=== PATIENT | male | born 1970 | race African-American/Black ===

== ENCOUNTER 2016-10-06 12:25 | Emergency (ER) | payer SELFPAY ==
[~2016-10-06] VITALS: Ht 195.6 cm; Wt 102.1 kg
--- NOTE | 2016-10-06 12:35 | PHYS DOC ---
Adult General Chief Complaint Chief Complaint: SYNCOPE HPI HPI Patient is a 46 year old male who presents with a syncopal episode prior to arrival. Patient states he was walking from the bathroom back to the bed and passed out. called EMS. Patient states he did hit his head however is on no blood thinners. Patient states that for the past 3-4 days he's had low-grade temps and has not felt well. Patient does describe some abdominal pain as generalized with associated constipation. Patient denies any chest pain or shortness of breath. Patient denies any nausea or vomiting. Patient denies any dysuria. Patient denies any other injuries related to the traumatic fall. Pertinent exam findings: Abdomen Right lower quadrant tenderness palpation without rebound tenderness ED course: Patient seen and evaluated upon arrival CBC, CMP, lipase, UA, CT of head without contrast, CT abdomen and pelvis with contrast ordered 1243: EKG shows normal sinus rhythm rate of 80 9 STEMI 1510: Discussed results of the patient and explained to him that he has a right lower lobe pneumonia and gave him a gram of Rocephin in the emergency room and discharge him home with Zithromax Pertinent findings: CT the head without contrast no acute cranial process CT of abdomen and pelvis no intra-abdominal process however right lower lobe pneumonia MDM: After reviewing the chart, CC/HPI/PMH, physical exam, [lab results], [ radiological results], I do not believe the patient has intracranial process warranting further workup and/or admission at this time. I do not believe the patient is septic and needs be admitted for his pneumonia. I believe the patient is stable to be discharged and can take oral antibiotics to treat his pneumonia as an outpatient. On reexamination the patient is asymptomatic and comfortable going home. Additional verbal discharge instructions were provided to the patient and that if symptoms get worse or any new symptoms arise that are worrisome to the patient he is to return to the emergency room immediately Review of Systems Review of Systems GEN: Denies fevers, chills, sweats HEENT: Denies blurred vision, sore throat CV: Denies chest pain RESP: Denies shortness of air, cough GI: Denies n/v/d, positive for abdominal pain NEURO: Denies confusion, dizziness MSK: Denies weakness, joint pain/swelling Current Medications Current Medications Current Medications Medications (Trade) Dose Ordered Sig/Sonny Start Time Stop Time Status Last Admin Dose Admin Ceftriaxone Sodium 50 ml @ 100 mls/hr 1X ONCE 10/06/16 15:30 10/06/16 15:59 Info (Do NOT chart on this entry -- for MONITORING) 1 each PRN DAILY PRN 10/06/16 13:45 10/08/16 13:44 Iohexol (Omnipaque 300 Mg/ml) 75 ml 1X ONCE 10/06/16 13:45 10/06/16 13:46 DC 10/06/16 13:49 75 ML Sodium Chloride 1,000 ml @ 1,000 mls/hr 1X ONCE 10/06/16 12:45 10/06/16 13:44 DC 10/06/16 12:59 1,000 MLS/HR Allergies Allergies Allergies Coded Allergies Type Severity Reaction Last Updated Verified No Known Drug Allergies 10/06/16 No Physical Exam Physical Exam GEN.: No apparent distress. Alert and oriented. HEENT: Head is normocephalic, atraumatic NECK: Supple. LUNGS: CTAB. HEART: RRR, S1, S2 present. Peripheral pulses intact ABDOMEN: Soft, positive tender to palpation right lower quadrant with no rebound tenderness. Positive bowel sounds. EXTREMITIES: Without any cyanosis. NEUROLOGIC: Normal speech, normal tone PSYCHIATRIC: Normal affect, normal mood. SKIN: No ulcerations Current Patient Data Vital Signs Vital Signs Date Time Temp Pulse Resp B/P (MAP) Pulse Ox O2 Delivery O2 Flow Rate FiO2 10/06/16 12:30 100.2 89 20 125/77 (93) 99 Room Air 100.2 Lab Values Laboratory Tests Test 10/06/16 12:55 10/06/16 13:10 White Blood Count 10.9 x10^3/uL (4.0-11.0) Red Blood Count 4.46 x10^6/uL (4.30-5.70) Hemoglobin 13.5 g/dL (13.0-17.5) Hematocrit 39.8 % (39.0-53.0) Mean Corpuscular Volume 89 fL (79-100) Mean Corpuscular Hemoglobin 30 pg (25-35) Mean Corpuscular Hemoglobin Concent 34 g/dL (31-37) Red Cell Distribution Width 14.4 % (11.5-14.5) Platelet Count 240 x10^3/uL (140-400) Neutrophils (%) (Auto) 81 % (31-73) H Lymphocytes (%) (Auto) 9 % (24-48) L Monocytes (%) (Auto) 10 % (0-9) H Eosinophils (%) (Auto) 0 % (0-3) Basophils (%) (Auto) 0 % (0-3) Neutrophils # (Auto) 8.9 x10^3uL (1.8-7.7) H Lymphocytes # (Auto) 0.9 x10^3/uL (1.0-4.8) L Monocytes # (Auto) 1.1 x10^3/uL (0.0-1.1) Eosinophils # (Auto) 0.0 x10^3/uL (0.0-0.7) Basophils # (Auto) 0.0 x10^3/uL (0.0-0.2) Sodium Level 136 mmol/L (136-145) Potassium Level 3.7 mmol/L (3.5-5.1) Chloride Level 98 mmol/L (98-107) Carbon Dioxide Level 29 mmol/L (21-32) Anion Gap 9 (6-14) Blood Urea Nitrogen 12 mg/dL (8-26) Creatinine 1.2 mg/dL (0.7-1.3) Estimated GFR (Cockcroft-Gault) 79.6 BUN/Creatinine Ratio 10 (6-20) Glucose Level 125 mg/dL (70-99) H Calcium Level 9.2 mg/dL (8.5-10.1) Total Bilirubin 0.5 mg/dL (0.2-1.0) Aspartate Amino Transferase (AST) 14 U/L (15-37) L Alanine Aminotransferase (ALT) 20 U/L (16-63) Alkaline Phosphatase 87 U/L (46-116) Total Protein 7.9 g/dL (6.4-8.2) Albumin 3.6 g/dL (3.4-5.0) Albumin/Globulin Ratio 0.8 (1.0-1.7) L Lipase 63 U/L (73-393) L Urine Collection Type Unknown Urine Color Yellow Urine Clarity Clear Urine pH 6.0 Urine Specific [place] 1.010 Urine Protein Negative mg/dL (NEG-TRACE) Urine Glucose (UA) Negative mg/dL (NEG) Urine Ketones (Stick) Trace mg/dL (NEG) Urine Blood Moderate (NEG) Urine Nitrite Negative (NEG) Urine Bilirubin Negative (NEG) Urine Urobilinogen Dipstick 1.0 mg/dL (0.2 mg/dL) Urine Leukocyte Esterase Negative (NEG) Urine RBC 1-2 /HPF (0-2) Urine WBC Occ /HPF (0-4) Urine Squamous Epithelial Cells Occ /LPF Urine Bacteria 0 /HPF (0-FEW) Urine Mucus Mod /LPF Urine Yeast Present /HPF Laboratory Tests 10/06/16 12:55 Laboratory Tests 10/06/16 12:55 EKG EKG Normal sinus rhythm rate of 80 and a STEMI [] Radiology/Procedures Radiology/Procedures CT of the head without contrast and right ear CT abdomen and pelvis IMPRESSION: No acute finding seen in the abdomen or pelvis. Infiltrate in the right lower lobe compatible with pneumonia. Chronic musculoskeletal changes. Mildly enlarged prostate[] Course & Med Decision Making Course & Med Decision Making Pertinent Labs and Imaging studies reviewed. (See chart for details) [] Dragon Disclaimer Dragon Disclaimer This electronic medical record was generated, in whole or in part, using a voice recognition dictation system. Departure Departure Impression: Primary Impression: Right lower lobe pneumonia Additional Impression: Syncope Disposition: HOME, SELF-CARE Condition: IMPROVED Patient Instructions: Pneumonia, Adult Additional Instructions: Please follow up with her PCP in one to 2 days and return if symptoms get worse Scripts Azithromycin (ZITHROMAX) 250 Mg Tablet 1 PKG PO UD, #6 TAB Prov: ANUPAM SANCHEZ DO 10/06/16 Problem Qualifiers Primary Impression: Right lower lobe pneumonia Pneumonia type: due to unspecified organism Qualified Codes: J18.1 - Lobar pneumonia, unspecified organism Additional Impression: Syncope Syncope type: unspecified Qualified Codes: R55 - Syncope and collapse ANUPAM SANCHEZ DO October 06, 2016 12:35
[2016-10-06] MEDS ORDERED: IV NORMAL SALINE 1000ML BAG 1,000 ML IV ONE (12:45)
--- NOTE | 2016-10-06 12:47 | EKG ---
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
[2016-10-06 13:15] LABS: BASO % 0 % (0-3); EOS % 0 % (0-3); HEMATOCRIT 39.8 % (39.0-53.0); HEMOGLOBIN 13.5 g/dL (13.0-17.5); LYMPH # 0.9 x10^3/uL (1.0-4.8); LYMPH % 9 % (24-48); MEAN CORPUSCULAR HEMOGLOBIN 30 pg (25-35); MEAN CORPUSCULAR HGB CONC 34 g/dL (31-37); MEAN CORPUSCULAR VOLUME 89 fL (79-100); MONO % 10 % (0-9); NEUT % 81 % (31-73); PLATELET COUNT 240 x10^3/uL (140-400); RED BLOOD COUNT 4.46 x10^6/uL (4.30-5.70); RED CELL DISTRIBUTION WIDTH 14.4 % (11.5-14.5); WHITE BLOOD COUNT 10.9 x10^3/uL (4.0-11.0)
[2016-10-06 13:21] LABS: BILIRUBIN,URINE NEGATIVE (NEG); GLUCOSE,URINE NEGATIVE (NEG); NITRITE,URINE NEGATIVE (NEG); PROTEIN,URINE NEGATIVE (NEG-TRACE)
[2016-10-06 13:22] LABS: CALCIUM 9.2 mg/dL (8.5-10.1); CREATININE 1.2 mg/dL (0.7-1.3); GFR 79.6; POTASSIUM 3.7 mmol/L (3.5-5.1)
[2016-10-06 13:27] LABS: ALBUMIN 3.6 g/dL (3.4-5.0); ALBUMIN/GLOBULIN RATIO 0.8 (1.0-1.7); TOTAL BILIRUBIN 0.5 mg/dL (0.2-1.0); TOTAL PROTEIN 7.9 g/dL (6.4-8.2)
[2016-10-06 13:36] LABS: BACTERIA,URINE 0 /HPF (0-FEW); SQUAMOUS EPITHELIAL CELL,UR OCC /LPF; WBC,URINE OCC /HPF (0-4); YEAST,URINE PRESENT /HPF
[2016-10-06] MEDS ORDERED: IOHEXOL 300 MG/ML 75 ML VIAL IV ONE (13:45)
[2016-10-06] MEDS ORDERED: CONTRAST GIVEN MC PRN (13:45)
--- NOTE | 2016-10-06 13:48 | RAD ---
CT head without contrast History: Syncope, fall, trauma to head. Comparison: None. Procedure: Axial images are obtained of the head from the skull base through the vertex without IV contrast. One or more of the following individualized dose reduction techniques were utilized for the study: Automated exposure control Adjustment of mA and/or kV according to patient's size Use of iterative reconstruction technique. Findings: The ventricles and sulci are normal for the patient's age. No mass-effect, intracranial mass, midline shift, hemorrhage or obvious acute infarction is identified. Basilar cisterns are patent. Bone windows demonstrate no significant calvarial abnormality. The visualized paranasal sinuses appear clear. Impression: No acute intracranial process.
--- NOTE | 2016-10-06 14:09 | RAD ---
Indication syncopal episode. Flank pain. Axial images through the abdomen and pelvis were obtained. Approximately 75 cc of Omnipaque 300 was administered intravenously. No oral contrast was administered. No prior imaging of the abdomen or pelvis is available. There is a significant area of consolidation, measuring approximately 6.5 cm in greatest dimension, in the right lower lobe compatible with pneumonia. The left lung base is clear. The liver and spleen appear normal and the gallbladder appears grossly normal. No pancreatic abnormality is seen. The adrenal glands and kidneys appear normal. No mass inflammatory process or acute finding in the abdomen is seen. No acute finding is seen in the pelvis. The prostate is mildly enlarged. There are degenerative changes in the lumbar spine. Degenerative changes are predominantly centered at L4-5 where there is disc space narrowing and degenerative endplate change. IMPRESSION: No acute finding seen in the abdomen or pelvis. Infiltrate in the right lower lobe compatible with pneumonia. Chronic musculoskeletal changes. Mildly enlarged prostate
[2016-10-06] MEDS ORDERED: AZIT250T PO (15:23)
[2016-10-06 16:00] VITALS: BP 133/83
== END 2016-10-06 16:02 | disposition home or self-care (01) ==
LOC: ER 12:25
DX: R55 Syncope and collapse (principal); J18.1 Lobar pneumonia, unspecified organism
CPT/HCPCS: 36415; 70450; 74177; 80053; 81001; 83690; 85027; 93005; 96361; 96365; 99285; J0690; J7030; Q9967

== ENCOUNTER 2017-08-18 17:25 | Emergency (ER) | payer OTHER ==
[2017-08-18 19:15] LABS: BILIRUBIN,URINE NEGATIVE (NEG); CLARITY,URINE CLEAR; COLOR,URINE YELLOW; GLUCOSE,URINE NEGATIVE (NEG); NITRITE,URINE NEGATIVE (NEG); PROTEIN,URINE NEGATIVE (NEG-TRACE)
[2017-08-18 19:20] LABS: BACTERIA,URINE 0 /HPF (0-FEW); RBC,URINE 0 /HPF (0-2); SQUAMOUS EPITHELIAL CELL,UR OCC /LPF; WBC,URINE 0 /HPF (0-4)
[2017-08-18] MEDS: IV NORMAL SALINE 1000ML BAG 1,000 ML IV (19:35)
[2017-08-18] MEDS: KETOROLAC 30 MG/ML INJ. IV (19:36)
[2017-08-18 19:46] LABS: ADD MAN DIFF? NO
[2017-08-18 19:50] LABS: BASO % 1 % (0-3); EOS # 0.2 x10^3/uL (0.0-0.7); EOS % 3 % (0-3); HEMATOCRIT 41.5 % (39.0-53.0); HEMOGLOBIN 13.9 g/dL (13.0-17.5); LYMPH # 2.3 x10^3/uL (1.0-4.8); LYMPH % 41 % (24-48); MEAN CORPUSCULAR HEMOGLOBIN 30 pg (25-35); MEAN CORPUSCULAR HGB CONC 34 g/dL (31-37); MEAN CORPUSCULAR VOLUME 90 fL (79-100); MONO # 0.5 x10^3/uL (0.0-1.1); MONO % 9 % (0-9); NEUT # 2.6 x10^3uL (1.8-7.7); NEUT % 46 % (31-73); PLATELET COUNT 301 x10^3/uL (140-400); RED BLOOD COUNT 4.61 x10^6/uL (4.30-5.70); RED CELL DISTRIBUTION WIDTH 15.3 % (11.5-14.5); WHITE BLOOD COUNT 5.7 x10^3/uL (4.0-11.0)
[2017-08-18 20:02] LABS: ANION GAP 8 (6-14); BLOOD UREA NITROGEN 23 mg/dL (8-26); BUN/CREATININE RATIO 19 (6-20); CALCIUM 8.9 mg/dL (8.5-10.1); CARBON DIOXIDE 30 mmol/L (21-32); CHLORIDE 102 mmol/L (98-107); CREATININE 1.2 mg/dL (0.7-1.3); GFR 79.2; GLUCOSE 91 mg/dL (70-99); POTASSIUM 4.1 mmol/L (3.5-5.1); SODIUM 140 mmol/L (136-145)
[2017-08-18 20:05] LABS: ALBUMIN 3.8 g/dL (3.4-5.0); ALBUMIN/GLOBULIN RATIO 0.9 (1.0-1.7); ALK PHOS 96 U/L (46-116); ALT (SGPT) 113 U/L (16-63); AST (SGOT) 61 U/L (15-37); CREATINE KINASE 859 U/L (39-308); TOTAL BILIRUBIN 0.3 mg/dL (0.2-1.0); TOTAL PROTEIN 7.9 g/dL (6.4-8.2)
== END 2017-08-18 20:43 | disposition home or self-care (01) ==
LOC: ER 17:25
DX: E86.0 Dehydration (principal); M25.512 Pain in left shoulder; T67.5XXA Heat exhaustion, unspecified, initial encounter; E78.00 Pure hypercholesterolemia, unspecified; I10 Essential (primary) hypertension; X58.XXXA Exposure to other specified factors, initial encounter; Y93.89 Activity, other specified; Y99.8 Other external cause status; Y92.89 Other specified places as the place of occurrence of the external cause
CPT/HCPCS: 36415; 73030; 80053; 81001; 82550; 85025; 93005; 96361; 96374; 99285-25; J1885; J7030

== ENCOUNTER 2017-11-30 00:01 | Emergency (ER) | payer OTHER ==
[2017-11-30 02:24] LABS: ADD MAN DIFF? NO
[2017-11-30 02:26] LABS: BASO % 1 % (0-3); EOS # 0.1 x10^3/uL (0.0-0.7); EOS % 2 % (0-3); HEMATOCRIT 40.7 % (39.0-53.0); LYMPH # 2.3 x10^3/uL (1.0-4.8); LYMPH % 40 % (24-48); MEAN CORPUSCULAR HEMOGLOBIN 32 pg (25-35); MEAN CORPUSCULAR HGB CONC 35 g/dL (31-37); MEAN CORPUSCULAR VOLUME 92 fL (79-100); MONO # 0.6 x10^3/uL (0.0-1.1); MONO % 11 % (0-9); NEUT # 2.7 x10^3uL (1.8-7.7); NEUT % 47 % (31-73); PLATELET COUNT 264 x10^3/uL (140-400); RED BLOOD COUNT 4.42 x10^6/uL (4.30-5.70); RED CELL DISTRIBUTION WIDTH 15.4 % (11.5-14.5); WHITE BLOOD COUNT 5.8 x10^3/uL (4.0-11.0)
[2017-11-30] MEDS: IV NORMAL SALINE 1000ML BAG 1,000 ML IV (02:26)
[2017-11-30] MEDS: MORPHINE SULFATE 4 MG/ML DISP.SYRIN. IV (02:26)
[2017-11-30 02:38] LABS: ANION GAP 9 (6-14); BLOOD UREA NITROGEN 25 mg/dL (8-26); CARBON DIOXIDE 27 mmol/L (21-32); CHLORIDE 105 mmol/L (98-107); CREATININE 1.3 mg/dL (0.7-1.3); GFR 72.2; GLUCOSE 90 mg/dL (70-99); SODIUM 141 mmol/L (136-145)
[2017-11-30 02:43] LABS: ALBUMIN 3.9 g/dL (3.4-5.0); ALK PHOS 84 U/L (46-116); ALT (SGPT) 28 U/L (16-63); AST (SGOT) 15 U/L (15-37); DIRECT BILIRUBIN 0.1 mg/dL (0.0-0.2); LIPASE 125 U/L (73-393); TOTAL BILIRUBIN 0.5 mg/dL (0.2-1.0); TOTAL PROTEIN 7.6 g/dL (6.4-8.2)
[2017-11-30] MEDS ORDERED: CONTRAST GIVEN. MC (03:00)
[2017-11-30] MEDS: IOHEXOL 300 MG/ML 100ML VIAL. IV (03:15)
== END 2017-11-30 05:00 | disposition home or self-care (01) ==
LOC: ER 00:01
DX: G89.29 Other chronic pain (principal); R10.13 Epigastric pain; M54.9 Dorsalgia, unspecified; R21 Rash and other nonspecific skin eruption; E78.00 Pure hypercholesterolemia, unspecified; I10 Essential (primary) hypertension
CPT/HCPCS: 36415; 74177; 80048; 80076; 83690; 85025; 96374; 99285-25; J2270; J7030; Q9967

== ENCOUNTER 2017-12-25 13:18 | Emergency (ER) | payer OTHER ==
[~2017-12-25] VITALS: Ht 195.6 cm; Wt 102.1 kg
[~2017-12-25 13:18] MED LIST: AZIT250T PO; HYDR-971 PO; NAPR-683 PO; RANI150C PO
[2017-12-25 13:31] VITALS: BP 145/91
[2017-12-25] MEDS ORDERED: MORPHINE SULFATE 10 MG/ML VIAL. IM ONE (14:30)
[2017-12-25] MEDS ORDERED: MORP15TA PO (14:36)
[2017-12-25] MEDS ORDERED: RANI150T21 PO (14:36)
[2017-12-25] MEDS ORDERED: METH-37 PO (14:36)
--- NOTE | 2017-12-25 14:50 | PHYS DOC ---
Past Medical History Past Medical History: High Cholesterol, Hypertension, Other Additional Past Medical Histor: Shoulder Dislocation (work comp) Past Surgical History: No Surgical History Alcohol Use: None Drug Use: None Adult General Chief Complaint Chief Complaint: SHOULDER INJURY HPI HPI Patient is a 47 year old male who presents primarily for pain control and medication refill. I did see this patient about one month earlier. He has a known history of degenerative disc disease in the cervical spine. This does cause him multiple complaints, particularly in the right shoulder and right upper extremity. He also had some signs consistent with impingement syndrome in that joint. Patient is closely followed by his primary care doctor. He also has a pending surgery for cervical neck fusion via anterior approach. He presents to the ER today simply stating that the medications he has been prescribed have not helped. He was given hydrocodone by his primary care doctor. This patient is limited in terms of pain medications because he does have a prior history of GI bleeding. He saw him earlier, he received some morphine in the ER which she states worked. He was also placed on Zantac which he feels helped his stomach pain. He did have a CT scan of the abdomen pelvis at last visit with no acute findings. Review of Systems Review of Systems Constitutional: Denies fever or chills HENT: Denies nasal congestion Respiratory: Denies cough or shortness of breath Cardiovascular: No additional information not addressed in HPI GI: Denies abdominal pain : Denies dysuria or hematuria Musculoskeletal: Denies back pain or joint pain Integument: Denies rash Neurologic: Denies headache Endocrine: Denies polyuria All other systems were reviewed and found to be within normal limits, except as documented in this note. Current Medications Current Medications Current Medications Medications (Trade) Dose Ordered Sig/Sonny Start Time Stop Time Status Last Admin Dose Admin Morphine Sulfate (Morphine Sulfate) 10 mg 1X ONCE 12/25/17 14:30 12/25/17 14:31 DC 12/25/17 14:12 10 MG Allergies Allergies Allergies Coded Allergies Type Severity Reaction Last Updated Verified No Known Drug Allergies 10/06/16 No Physical Exam Physical Exam Constitutional: Well developed, well nourished, no acute distress HENT: Normocephalic, atraumatic, bilateral external ears normal Eyes: PERRLA, EOMI, conjunctiva normal Neck: Normal range of motion, no tenderness Cardiovascular:Heart rate regular rhythm, no murmur Lungs & Thorax: Bilateral breath sounds clear to auscultation Skin: Warm, dry, no erythema, no rash Extremities: No edema Neurologic: Alert and oriented X 3 Psychologic: Affect normal, judgement normal, mood normal Normal exam of the right shoulder. Current Patient Data Vital Signs Vital Signs Date Time Temp Pulse Resp B/P (MAP) Pulse Ox O2 Delivery O2 Flow Rate FiO2 12/25/17 14:12 19 99 Room Air 12/25/17 13:31 98.2 101 145/91 (109) 98.2 EKG EKG [] Radiology/Procedures Radiology/Procedures [] Course & Med Decision Making Course & Med Decision Making Pertinent Labs and Imaging studies reviewed. (See chart for details) I waited in the ER, primarily for medication refill. The medications he was prescribed by a different provider caused him some ill side effects and he could not continue to take them. In the emergency room, he was given 1 intramuscular dose of morphine which did entirely relieve his symptoms. He will be discharged home on the same medication. He is also given Robaxin for muscle spasm. He is advised that he can use Tylenol at least up until 10 days prior to his procedure. Patient describes some poor side effects from hydrocodone which he was prescribed to take at home. He has tolerated morphine twice in the emergency department without any ill effects. He is discharged home with a prescription for oral morphine. Again, this patient is a poor candidate for the medications which would likely benefit him the most, anti-inflammatories, due to history of GI bleeding. Opiate precautions are discussed. The patient is accompanied by his who is driving him home today. Dragon Disclaimer Dragon Disclaimer This electronic medical record was generated, in whole or in part, using a voice recognition dictation system. Departure Departure Impression: Primary Impression: Shoulder impingement Additional Impression: Muscle spasm Disposition: 01 HOME, SELF-CARE Condition: GOOD Patient Instructions: Muscle Strain, [id number], Degenerative Disk Disease Scripts Morphine Sulfate (MORPHINE SULFATE) 15 Mg Tablet 1 TAB PO TID PRN for severe pain, #30 TAB Prov: SELINA LUCIA DO 12/25/17 Ranitidine Hcl (ZANTAC) 150 Mg Tablet 150 MG PO BID, #120 TAB Prov: SELINA LUCIA DO 12/25/17 Methocarbamol (ROBAXIN) 500 Mg Tablet 500 MG PO QID PRN for MUSCLE SPASMS, #40 TAB Prov: SELINA LUCIA DO 12/25/17 Problem Qualifiers SELINA LUCIA DO Dec 25, 2017 14:50
== END 2017-12-25 15:05 | disposition home or self-care (01) ==
LOC: ER 13:18
DX: M25.811 Other specified joint disorders, right shoulder (principal); M62.838 Other muscle spasm; R10.9 Unspecified abdominal pain; E78.00 Pure hypercholesterolemia, unspecified; I10 Essential (primary) hypertension; M50.30 Other cervical disc degeneration, unspecified cervical region
CPT/HCPCS: 96372; 99283; J2270

== ENCOUNTER 2017-12-30 12:19 | Emergency (ER) | payer SELFPAY ==
[~2017-12-30] VITALS: Ht 195.6 cm; Wt 110.7 kg
[~2017-12-30 12:19] MED LIST changes: +METH-37 PO; +MORP15TA PO; +RANI150T21 PO
--- NOTE | 2017-12-30 13:40 | PHYS DOC ---
Past Medical History Past Medical History: High Cholesterol, Hypertension, Other Additional Past Medical Histor: Shoulder Dislocation (work comp) Past Medical History Borderline diabetic, hemorrhoids, acid reflux Past Surgical History T&A Smoking: Less than 1pk/day Alcohol Use: None Drug Use: None Adult General Chief Complaint Chief Complaint: RECTAL BLEED HPI HPI 47-year-old male presents to ER with complaints of blood in his stool this morning following a bowel movement. Pt reports last night around 9 PM he started having intermittent nausea denies any vomiting episodes. Patient reports he woke around 2-3 a.m. with lower abdominal pain. Patient reports this morning he was having a bowel movement which she was straining slightly and when finished he noticed blood in the stool. Patient reports he has had 3 additional bowel movements with visible blood. Patient reports he has had intermittent lightheadedness denying any syncope. Patient denies any chest pain or palpitations. He denies fever or chills. Patient reports he has been urinating without symptoms. Patient denies swelling in extremities. Patient reports abdominal pain has been intermittent and he feels bloated and lower abdomen. Review of Systems Review of Systems Constitutional: Denies fever or chills [] Eyes: Denies change in visual acuity or eye pain [] HENT: Denies nasal congestion or sore throat [] Respiratory: Denies cough Cardiovascular: Denies CP/palpitations GI: Denies vomiting or diarrhea. Reports lower abd pain which radiates into sides of abd. Reports bloody stools this morning x4. : Denies dysuria or hematuria. Denies flank pain. Denies incontinence. Reports he has had increased urine output as he was started on a diuretic yest. Musculoskeletal: Denies back pain or joint pain [] Integument: Denies rash or skin lesions. Denies swelling Neurologic: Denies headache, focal weakness or sensory changes. Reports intermittent lightheadedness Endocrine: Denies polyuria or polydipsia [] All other systems were reviewed and found to be within normal limits, except as documented in this note. Current Medications Current Medications Current Medications Medications (Trade) Dose Ordered Sig/Sonny Start Time Stop Time Status Last Admin Dose Admin Dicyclomine HCl (Bentyl) 20 mg 1X ONCE 12/30/17 14:00 12/30/17 14:01 DC 12/30/17 13:51 20 MG Iohexol (Omnipaque 300 Mg/ml) 75 ml 1X ONCE 12/30/17 14:00 12/30/17 14:01 DC 12/30/17 14:08 75 ML Ondansetron HCl (Zofran) 4 mg 1X ONCE 12/30/17 14:00 12/30/17 14:01 DC 12/30/17 13:50 4 MG Sodium Chloride 1,000 ml @ 1,000 mls/hr 1X ONCE 12/30/17 14:00 12/30/17 14:59 DC 12/30/17 13:50 1,000 MLS/HR Allergies Allergies Allergies Coded Allergies Type Severity Reaction Last Updated Verified No Known Drug Allergies 10/06/16 No Physical Exam Physical Exam Constitutional: Well developed, well nourished, no acute distress, non-toxic appearance. Pt is anxious when discussing ongoing sxs HENT: Normocephalic, atraumatic, bilateral ears normal, mucous membranes pink/ dry, no oral exudates, nose normal. [] Eyes: PERRLA, no nystagmus, conjunctiva normal, no discharge. [] Neck: Normal range of motion, tender to palp. lateral sides of neck- pt reports chronic neck pain no acute changes, supple, no gross adenopathy Cardiovascular:Heart rate regular rhythm, no murmur [] Lungs & Thorax: Bilateral breath sounds clear to auscultation. Resp. equal/ nonlabored Abdomen: Bowel sounds normal, soft/nondistended, diffuse tenderness in lower abd into bilat. sides- no focal area or rebound tenderness, no masses, no pulsatile masses. [] Skin: Warm, dry, no erythema, no rash. [] Back: Diffuse tenderness in upper/mid back- pt reports chronic back pain with no acute changes, no CVA tenderness. [] Extremities: No tenderness, no cyanosis, no clubbing, ROM intact, no edema. [] Neurologic: Alert and oriented X 3, normal motor function, normal sensory function, no focal deficits noted. [] Psychologic: Affect normal, judgement normal, anxious during discussion of sxs- no uncontrollable behavior Current Patient Data Vital Signs Vital Signs Date Time Temp Pulse Resp B/P (MAP) Pulse Ox O2 Delivery O2 Flow Rate FiO2 12/30/17 15:10 64 167/84 (111) 99 Room Air 12/30/17 13:05 98.4 20 98.4 Lab Values Laboratory Tests Test 12/30/17 13:39 12/30/17 14:35 White Blood Count 6.5 x10^3/uL (4.0-11.0) Red Blood Count 4.72 x10^6/uL (4.30-5.70) Hemoglobin 14.7 g/dL (13.0-17.5) Hematocrit 43.1 % (39.0-53.0) Mean Corpuscular Volume 91 fL (79-100) Mean Corpuscular Hemoglobin 31 pg (25-35) Mean Corpuscular Hemoglobin Concent 34 g/dL (31-37) Red Cell Distribution Width 14.4 % (11.5-14.5) Platelet Count 273 x10^3/uL (140-400) Neutrophils (%) (Auto) 49 % (31-73) Lymphocytes (%) (Auto) 39 % (24-48) Monocytes (%) (Auto) 9 % (0-9) Eosinophils (%) (Auto) 2 % (0-3) Basophils (%) (Auto) 1 % (0-3) Neutrophils # (Auto) 3.2 x10^3uL (1.8-7.7) Lymphocytes # (Auto) 2.5 x10^3/uL (1.0-4.8) Monocytes # (Auto) 0.6 x10^3/uL (0.0-1.1) Eosinophils # (Auto) 0.1 x10^3/uL (0.0-0.7) Basophils # (Auto) 0.1 x10^3/uL (0.0-0.2) Prothrombin Time 12.5 SEC (11.7-14.0) Prothrombin Time INR 1.0 (0.8-1.1) PTT 26 SEC (24-38) Sodium Level 138 mmol/L (136-145) Potassium Level 4.0 mmol/L (3.5-5.1) Chloride Level 100 mmol/L (98-107) Carbon Dioxide Level 29 mmol/L (21-32) Anion Gap 9 (6-14) Blood Urea Nitrogen 19 mg/dL (8-26) Creatinine 1.3 mg/dL (0.7-1.3) Estimated GFR (Cockcroft-Gault) 72.2 BUN/Creatinine Ratio 15 (6-20) Glucose Level 95 mg/dL (70-99) Calcium Level 9.8 mg/dL (8.5-10.1) Magnesium Level 2.0 mg/dL (1.8-2.4) Total Bilirubin 0.3 mg/dL (0.2-1.0) Aspartate Amino Transferase (AST) 15 U/L (15-37) Alanine Aminotransferase (ALT) 27 U/L (16-63) Alkaline Phosphatase 89 U/L (46-116) Total Protein 8.1 g/dL (6.4-8.2) Albumin 4.3 g/dL (3.4-5.0) Albumin/Globulin Ratio 1.1 (1.0-1.7) Lipase 109 U/L (73-393) Urine Collection Type Unknown Urine Color Yellow Urine Clarity Clear Urine pH 5.5 Urine Specific [place] >=1.030 Urine Protein Negative mg/dL (NEG-TRACE) Urine Glucose (UA) Negative mg/dL (NEG) Urine Ketones (Stick) Negative mg/dL (NEG) Urine Blood Negative (NEG) Urine Nitrite Negative (NEG) Urine Bilirubin Negative (NEG) Urine Urobilinogen Dipstick 0.2 mg/dL (0.2 mg/dL) Urine Leukocyte Esterase Negative (NEG) Urine RBC 0 /HPF (0-2) Urine WBC 0 /HPF (0-4) Urine Bacteria 0 /HPF (0-FEW) Laboratory Tests 12/30/17 13:39 Laboratory Tests 12/30/17 13:39 EKG EKG [] Radiology/Procedures Radiology/Procedures EXAM: Abdomen and pelvis CT with intravenous contrast. HISTORY: Rectal bleeding. TECHNIQUE: Computed tomographic images of the abdomen and pelvis were obtained following the administration of 75 cc Omnipaque 300 intravenous contrast. Multiplanar reformatting was performed. *One or more of the following individualized dose reduction techniques were utilized for this examination: 1. Automated exposure control. 2. Adjustment of the mA and/or kV according to patient size. 3. Use of iterative reconstruction technique. COMPARISON: 11/30/2017. FINDINGS: Evaluation of the lower thorax is unremarkable. No hepatic lesion is seen. The gallbladder, pancreas, spleen, adrenal glands and kidneys are unremarkable. There is no appendicitis. There is no bowel obstruction. The bladder is unremarkable. No pathologically enlarged lymph node is seen. The aorta is normal in caliber. There is no suspicious osseous lesion. There is degenerative change within the lumbar spine, primarily at at L4-L5. This results in bilateral foraminal stenosis. There is degenerative change involving both hips. There are few benign bone islands. IMPRESSION: No acute abdominal or pelvic finding. Electronically signed by: Darleen Tamez MD (12/30/2017 2:24 PM) [facility] DICTATED and SIGNED BY: DARLEEN TAMEZ MD DATE: 12/30/17 1421 Course & Med Decision Making Course & Med Decision Making Pertinent Labs and Imaging studies reviewed. (See chart for details) 1450: On reevaluation patient reports he is feeling better than he did at arrival to ER with dose of Bentyl/Zofran and IV fluids. Pt remains nontoxic and in no visible distress. Discussed CT and lab results with no acute findings- stable H&H at 14.7/43.1 WBCs NL at 6.5 BUN/Cr NL at 19/1.3. CT with no acute findings. Discussed obtaining Hemoccult for further evaluation and with labs and CT with no acute findings patient is preferring not to have rectal exam at this time. With further discussion patient reports last night he had pizza and large amount of hot wings and spicy hot sauce. Indepth conversation was had with pt and his family regarding avoiding spicy/acidic food and that red color may have been r/t lg sauce intake last night along with possible irritation to GI tract. UA being sent- if results NL discussed plans for home discharge with Rx for Bentyl. GI referral will be provided with discharge paperwork if sxs persist or with any concerns. 1522: UA results NL. Discharge instructions discussed and education provided on s&s to return to ER for. At time of discharge patient is in no visible distress remaining nontoxic in appearance. Pt states he is feeling much better than at time of arrival. Copies of test results were provided for follow-up purposes. Dragon Disclaimer Dragon Disclaimer This electronic medical record was generated, in whole or in part, using a voice recognition dictation system. Departure Departure Impression: Primary Impression: Abdominal pain Additional Impression: Blood in stool Disposition: HOME, SELF-CARE Condition: STABLE Referrals: UNKNOWN PCP NAME (PCP) NEDA ABRAMS MD gastrointestinal doctor Patient Instructions: Abdominal Pain, Rectal Bleeding Additional Instructions: Avoid spicy and acidic foods. If symptoms occur again or with concerns follow- up with your primary doctor and/or gastrointestinal doctor for further evaluation/care. Scripts Dicyclomine Hcl (DICYCLOMINE HCL) 10 Mg Capsule 10 MG PO QID, #14 CAP 0 Refills Prov: JAMES CORREA APRN 12/30/17 Problem Qualifiers JAMES CORREA APRN Dec 30, 2017 13:40
[2017-12-30 13:56] LABS: BASO # 0.1 x10^3/uL (0.0-0.2); BASO % 1 % (0-3); CALCIUM 9.8 mg/dL (8.5-10.1); CREATININE 1.3 mg/dL (0.7-1.3); EOS # 0.1 x10^3/uL (0.0-0.7); EOS % 2 % (0-3); GFR 72.2; HEMATOCRIT 43.1 % (39.0-53.0); HEMOGLOBIN 14.7 g/dL (13.0-17.5); LYMPH # 2.5 x10^3/uL (1.0-4.8); LYMPH % 39 % (24-48); MEAN CORPUSCULAR HEMOGLOBIN 31 pg (25-35); MEAN CORPUSCULAR HGB CONC 34 g/dL (31-37); MEAN CORPUSCULAR VOLUME 91 fL (79-100); MONO # 0.6 x10^3/uL (0.0-1.1); MONO % 9 % (0-9); NEUT # 3.2 x10^3uL (1.8-7.7); NEUT % 49 % (31-73); PLATELET COUNT 273 x10^3/uL (140-400); RED BLOOD COUNT 4.72 x10^6/uL (4.30-5.70); RED CELL DISTRIBUTION WIDTH 14.4 % (11.5-14.5); WHITE BLOOD COUNT 6.5 x10^3/uL (4.0-11.0)
[2017-12-30] MEDS ORDERED: ONDANSETRON PF 4 MG/2 ML VIAL. IV ONE (14:00)
[2017-12-30] MEDS ORDERED: IV NORMAL SALINE 1000ML BAG 1,000 ML IV ONE (14:00)
[2017-12-30] MEDS ORDERED: DICYCLOMINE 20 MG/2 ML AMPUL. IM ONE (14:00)
[2017-12-30] MEDS ORDERED: IOHEXOL 300 MG/ML 100ML VIAL. IV ONE (14:00)
[2017-12-30 14:02] LABS: ALBUMIN 4.3 g/dL (3.4-5.0); ALBUMIN/GLOBULIN RATIO 1.1 (1.0-1.7); TOTAL BILIRUBIN 0.3 mg/dL (0.2-1.0); TOTAL PROTEIN 8.1 g/dL (6.4-8.2)
[2017-12-30 14:07] LABS: PROTHROMBIN TIME PATIENT 12.5 SEC (11.7-14.0)
--- NOTE | 2017-12-30 14:27 | RAD ---
EXAM: Abdomen and pelvis CT with intravenous contrast. HISTORY: Rectal bleeding. TECHNIQUE: Computed tomographic images of the abdomen and pelvis were obtained following the administration of 75 cc Omnipaque 300 intravenous contrast. Multiplanar reformatting was performed. *One or more of the following individualized dose reduction techniques were utilized for this examination: 1. Automated exposure control. 2. Adjustment of the mA and/or kV according to patient size. 3. Use of iterative reconstruction technique. COMPARISON: 11/30/2017. FINDINGS: Evaluation of the lower thorax is unremarkable. No hepatic lesion is seen. The gallbladder, pancreas, spleen, adrenal glands and kidneys are unremarkable. There is no appendicitis. There is no bowel obstruction. The bladder is unremarkable. No pathologically enlarged lymph node is seen. The aorta is normal in caliber. There is no suspicious osseous lesion. There is degenerative change within the lumbar spine, primarily at at L4-L5. This results in bilateral foraminal stenosis. There is degenerative change involving both hips. There are few benign bone islands. IMPRESSION: No acute abdominal or pelvic finding. Electronically signed by: Darleen Tamez MD (12/30/2017 2:24 PM) [place] [id number]
[2017-12-30 15:02] LABS: BILIRUBIN,URINE NEGATIVE (NEG); CLARITY,URINE CLEAR; COLOR,URINE YELLOW; NITRITE,URINE NEGATIVE (NEG); PH,URINE 5.5; PROTEIN,URINE NEGATIVE (NEG-TRACE); UROBILINOGEN,URINE 0.2 mg/dL (0.2 mg/dL)
[2017-12-30 15:10] VITALS: BP 167/84
[2017-12-30 15:12] LABS: BACTERIA,URINE 0 /HPF (0-FEW); RBC,URINE 0 /HPF (0-2); WBC,URINE 0 /HPF (0-4)
[2017-12-30] MEDS ORDERED: DICY10CA3 PO (15:27)
== END 2017-12-30 15:43 | disposition home or self-care (01) ==
LOC: ER 12:19
DX: R10.84 Generalized abdominal pain (principal); K92.1 Melena; R42 Dizziness and giddiness; E78.00 Pure hypercholesterolemia, unspecified; I10 Essential (primary) hypertension; K21.9 Gastro-esophageal reflux disease without esophagitis; F17.200 Nicotine dependence, unspecified, uncomplicated
CPT/HCPCS: 36415; 74177; 80053; 81001; 83690; 83735; 85025; 85610; 85730; 96361; 96372; 96374; 99285; J0500; J2405; J7030; Q9967

== ENCOUNTER 2018-10-05 22:07 | Emergency (ER) | payer SELFPAY ==
[~2018-10-05] VITALS: Ht 195.6 cm; Wt 110.2 kg
[~2018-10-05 22:07] MED LIST changes: +DICY10CA3 PO; +HYDR-3164 PO; -HYDR-971 PO; +RANI-376 PO; -RANI150T21 PO
[2018-10-05 22:20] VITALS: BP 167/84
[2018-10-05] MEDS ORDERED: TRIA15OI TP (22:34)
--- NOTE | 2018-10-05 22:34 | PHYS DOC ---
Past Medical History Past Medical History: GERD, High Cholesterol, Hypertension, Other Additional Past Medical Histor: Shoulder Dislocation (work comp),CHRONIC BACK PAIN Alcohol Use: None Drug Use: None Adult General Chief Complaint Chief Complaint: ITCHING HPI HPI Patient is a 48 year old male presents to the ED complaining of skin rash x 1 week. Patient states that they recently moved out of a house that had bedbugs. Patient states that they called an distance learning technician and had been washing their clothes but was told to get seen by their paste thinner since it has not gone away completely. Patient complains of rash to upper half of body. Sick contacts with similar symptoms. States that the bites itch. Denies conjunctivitis, nausea/vomiting, fever, headache, chest pain, shortness of breath or cough. Patient has pictures of bed bugs on phone. Review of Systems Review of Systems Constitutional: Denies fever or chills [] Eyes: Denies change in visual acuity, redness, or eye pain [] HENT: Denies nasal congestion or sore throat [] Respiratory: Denies cough or shortness of breath [] Cardiovascular: No additional information not addressed in HPI [] GI: Denies abdominal pain, nausea, vomiting, bloody stools or diarrhea [] : Denies dysuria or hematuria [] Musculoskeletal: Denies back pain or joint pain [] Integument: Complains of insect bites. Denies rash or skin lesions [] Neurologic: Denies headache, focal weakness or sensory changes [] All other systems were reviewed and found to be within normal limits, except as documented in this note. Allergies Allergies Allergies Coded Allergies Type Severity Reaction Last Updated Verified No Known Drug Allergies 10/06/16 No Physical Exam Physical Exam Constitutional: Well developed, well nourished, no acute distress, non-toxic appearance. [] HENT: Normocephalic, atraumatic Skin: Warm, dry. small insect bites to torso and upper extremities consistent with bug bites. Back: No tenderness, no CVA tenderness. [] Extremities: No tenderness, no cyanosis, no clubbing, ROM intact, no edema. [] Neurologic: Alert and oriented X 3, normal motor function, normal sensory function, no focal deficits noted. [] Psychologic: Affect normal, judgement normal, mood normal. [] EKG EKG [] Radiology/Procedures Radiology/Procedures [] Course & Med Decision Making Course & Med Decision Making Pertinent Labs and Imaging studies reviewed. (See chart for details) []Discussed symptomatic treatment, hiring an distance learning technician and [id number] medications. We'll prescribe triamcinolone outpatient. Discussed symptomatic treatment, OTC medications and the importance of follow-up as well as reasons to return to the ED. Patient understands and agrees with plan. Dragon Disclaimer Dragon Disclaimer This electronic medical record was generated, in whole or in part, using a voice recognition dictation system. Departure Departure Impression: Primary Impression: Insect bite Disposition: HOME, SELF-CARE Condition: STABLE Referrals: UNKNOWN PCP NAME (PCP) BUCK RIVERA MD Patient Instructions: Bedbugs Scripts Triamcinolone Acetonide (TRIAMCINOLONE ACETONIDE 0.1% OINT) 15 Gm Oint...g. 1 ANDRES TP BID for WOUND CARE, #1 TUBE MIX WITH EUCERIN DIRECTED BY PHYSICIAN Prov: DANN DELCID 10/05/18 DANN DELCID October 05, 2018 22:34
== END 2018-10-05 23:10 | disposition home or self-care (01) ==
LOC: ER 22:07
DX: S40.862A Insect bite (nonvenomous) of left upper arm, initial encounter (principal); S40.861A Insect bite (nonvenomous) of right upper arm, initial encounter; S20.361A Insect bite (nonvenomous) of right front wall of thorax, initial encounter; S20.362A Insect bite (nonvenomous) of left front wall of thorax, initial encounter; S30.861A Insect bite (nonvenomous) of abdominal wall, initial encounter; K21.9 Gastro-esophageal reflux disease without esophagitis; E78.00 Pure hypercholesterolemia, unspecified; I10 Essential (primary) hypertension; G89.29 Other chronic pain; W57.XXXA Bitten or stung by nonvenomous insect and other nonvenomous arthropods, initial encounter; Y93.89 Activity, other specified; Y92.89 Other specified places as the place of occurrence of the external cause; Y99.8 Other external cause status
CPT/HCPCS: 99283

== ENCOUNTER 2020-08-14 14:03 | Emergency (ER) | payer OTHER ==
[~2020-08-14] VITALS: Ht 195.6 cm; Wt 109.9 kg
[~2020-08-14 14:03] MED LIST changes: +TRIA15OI TP
[2020-08-14 15:09] VITALS: BP 167/84
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
--- NOTE | 2020-08-14 15:58 | RAD ---
Exam Date: 08/14/2020 3:30 PM XR bilateral SHOULDER 2+ VIEWS Indication: Reason: pain swelling / Spl. Instructions: / History: COMPARISON: August 18, 2017 FINDINGS/ IMPRESSION: Mild to moderate degenerative changes are present at the glenohumeral and AC joints bilaterally. Alig nment is maintained. No acute fracture or dislocation. The soft tissues are within normal limits. Electronically signed by: Neftali Velásquez MD (08/14/2020 3:56 PM) [id number]
--- NOTE | 2020-08-14 15:59 | RAD ---
Three-view bilateral ankle HISTORY: Pain and swelling AP lateral oblique views bilaterally The visualized osseous structures appear normal. The tibiotalar relationship is normal. IMPRESSION: No acute findings. Electronically signed by: Tani Ayers III, MD (08/14/2020 3:57 PM) ANATOLIY
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
== END 2020-08-14 16:43 | disposition home or self-care (01) ==
LOC: ER 14:03
DX: S13.9XXA Sprain of joints and ligaments of unspecified parts of neck, initial encounter (principal); M54.41 Lumbago with sciatica, right side; M54.42 Lumbago with sciatica, left side; M25.471 Effusion, right ankle; M25.571 Pain in right ankle and joints of right foot; M25.572 Pain in left ankle and joints of left foot; M25.511 Pain in right shoulder; M25.512 Pain in left shoulder; I10 Essential (primary) hypertension; E78.00 Pure hypercholesterolemia, unspecified; K21.9 Gastro-esophageal reflux disease without esophagitis; G89.29 Other chronic pain; F17.200 Nicotine dependence, unspecified, uncomplicated; V89.2XXA Person injured in unspecified motor-vehicle accident, traffic, initial encounter; Y93.89 Activity, other specified; Y92.488 Other paved roadways as the place of occurrence of the external cause; Y99.8 Other external cause status
CPT/HCPCS: 70450; 72125; 72131; 73030-50; 73610-50; 99285-25

== ENCOUNTER 2021-02-10 18:47 | Emergency (ER) | payer OTHER ==
[~2021-02-10] VITALS: Ht 190.5 cm; Wt 48.0 kg
[2021-02-10 19:24] VITALS: BP 176/101
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
== END 2021-02-10 21:35 | disposition home or self-care (01) ==
LOC: ER 18:47
DX: S80.12XA Contusion of left lower leg, initial encounter (principal); M54.50 Low back pain, unspecified; I10 Essential (primary) hypertension; K21.9 Gastro-esophageal reflux disease without esophagitis; E78.00 Pure hypercholesterolemia, unspecified; G89.29 Other chronic pain; F17.200 Nicotine dependence, unspecified, uncomplicated; V49.59XA Passenger injured in collision with other motor vehicles in traffic accident, initial encounter; Y93.89 Activity, other specified; Y92.488 Other paved roadways as the place of occurrence of the external cause; Y99.8 Other external cause status
CPT/HCPCS: 72100; 73590; 99284